=== PATIENT | male | born 1990 | race African-American/Black ===

== ENCOUNTER → 2018-01-02 | Day surgery (SDC) | payer OTHER ==
[2017-12-24 08:46] VITALS: Ht 193 cm; Wt 88.6 kg
[~2018-01-02] VITALS: Ht 193 cm; Wt 88.6 kg
[~2018-01-02] MED LIST: IOPAMIDOL INJ 61% 15 ML VIAL ONE; LIDOCAINE HCL 1% MPF 5 ML VIAL ONE; SODIUM CHLORIDE 0.9% INJ 10 ML VIAL ONE
--- NOTE | 2018-01-02 14:02 | History & Physical Bridge - [place] ---
H&P Re-Evaluation Bridge Note: I have examined the patient, reviewed the History & Physical and in the interval since the performance of the History & Physical I have noted the following changes of clinical significance: No changes noted
--- NOTE | 2018-01-02 14:30 | [facility] Post Operative Brief Note ---
Immediate Operative Summary Operative Date Jan 02, 2018. Pre-Operative Diagnosis L5-S1 stenosis secondary to disc protrusion with Left S1 radiculopathy Post-Operative Diagnosis Same Procedure(s) Performed Lumbar Epidural Steroid Injection Surgeon Dr Liban Overton Cobol Developer Surgeon(s) None Estimated Blood Loss 0 Findings Consistent with Post-Op Diagnosis Specimens NA Drains None Anesthesia Type Local Complication(s) none Disposition Disposition:
--- NOTE | 2018-01-02 14:31 | Discharge Instructions ---
Discharge Instructions Date of Service Jan 02, 2018. Visit Reason for Visit: Radiculopathy, Sacral & Sacrococcygeal Region Discharge Discharge Diagnosis / Problem: Left leg pain Discharge Goals Goal(s): Decrease discomfort, Improve function Activity Recommendations Activity Limitations: resume your previous activity Anesthesia . Post Anesthesia Instructions: If you have had General Anesthesia or IV Sedation: * Do not drive today. * Resume driving when surgeon permits. * Do not make important decisions or sign legal documents today. * Call surgeon for: 1. Temperature elevations greater than 101 degrees F. 2. Uncontrollable pain. 3. Excessive bleeding. 4. Persistent nausea and vomiting. 5. Medication intolerance (nausea, vomiting or rash). * For nausea and vomiting use only clear liquids such as: tea, soda, bouillon until nausea subsides, then gradually increase diet as tolerated. * If you have any concerns or questions, call your surgeon's office. If physician is unavailable and it is an emergency, call 911 or go to the nearest emergency room. . Diet Recommendations Recommended Home Diet: resume previous diet Procedures Procedures Performed: Lumbar Epidural Steroid Injection Pending Studies Studies pending at discharge: no Medical Emergencies . Who to Call and When: Medical Emergencies: If at any time you feel your situation is an emergency, please call 911 immediately. . Non-Emergent Contact Non-Emergency issues call your: Specialist . . "Provider Documentation" section prepared by Liban Overton. .
[2018-01-02 14:32] VITALS: TEMP 36.7
[2018-01-02 14:49] VITALS: BP 130/85; PULSE 76; O2SAT 96
--- NOTE | 2018-01-02 15:12 | OPERATIVE REPORT ---
DATE OF OPERATION: 01/02/2018 PREOPERATIVE DIAGNOSIS: L5-S1 stenosis secondary to disc protrusion with left S1 radiculopathy. POSTOPERATIVE DIAGNOSIS: L5-S1 stenosis secondary to disc protrusion with left S1 radiculopathy. PROCEDURE: Left paramedian L5-S1 intralaminar epidural steroid injection under fluoroscopic guidance. INDICATIONS: The patient is a 27-year-old male with a 4-year history of low back pain that has not responded to conservative measures. He also reported having an SI joint injection and an epidural that were not effective for the pain. Physical therapy and prescription medication were not helpful. His MRI revealed disc desiccation at L5-S1 causing narrowing of the left L5-S1 neural foramen. We believe an epidural placed appropriately will provide him with relief. PHYSICAL EXAMINATION: A pleasant male, seated comfortably. His lumbar paraspinal muscles were palpated. He had some tenderness of his left sciatic notch area, some pain inhibition with straight leg testing, decreased subjective sensation in the left L5-S1 dermatomes. CONSENT: Verbal and written consent was obtained from the patient. Risks and benefits were reviewed. Risks include but are not limited to epidural abscess, epidural hematoma, allergic reaction, dural puncture. The patient wishes to proceed. PROCEDURE IN DETAIL: The patient was taken back to the special procedures room of [facility] where he was maintained in a prone position. Backside was cleansed with Betadine x3 and a dry sterile dressing was applied. Fluoroscope was used to identify the L5-S1 intralaminar space. The overlying skin was anesthetized with 4 mL of lidocaine 1% with a 25 gauge 1.5-inch needle. A 22-gauge 3.5 inch Tuohy needle was then directed down towards the intralaminar space. It was advanced under lateral fluoroscopic guidance. Loss of resistance was noted at a depth of 6 cm. Isovue-300 contrast 1 mL was injected in, which demonstrated an epidural uptake pattern which was confirmed with a lateral view. He then underwent an injection after negative aspiration of 40 mg of Depo-Medrol, 4 mL of preservative-free sodium chloride. The injection reproduced a familiar transient radicular sensation down the left leg. DISPOSITION: 1. The patient is taken out into the discharge recovery area where he will be discharged home once discharge criteria are met. 2. Follow up in the [facility] office in 4 weeks' time. I attest to the content of the Intraoperative Record and any orders documented therein. Any exception s are noted below.
== END | disposition home or self-care (01) ==
LOC: X.SURG 12:51
PROVIDERS: ATTEND Physical Medicine & Rehabilitation
DX: M51.17 Intervertebral disc disorders with radiculopathy, lumbosacral region (principal); M48.061 Spinal stenosis, lumbar region without neurogenic claudication; Z82.49 Family history of ischemic heart disease and other diseases of the circulatory system; Z82.3 Family history of stroke; Z83.3 Family history of diabetes mellitus